=== PATIENT | female | born 1970 | race Caucasian/White ===

== ENCOUNTER 2016-02-18 11:04 | Emergency (ER) | payer BC, MEDICAID ==
[2016-02-18 11:16] VITALS: TEMP 98.1; BMI 26.6
[2016-02-18 11:41] LABS: LEUKOCYTES/URINE NEG (NEGATIVE); NITRITE/URINE NEG (NEGATIVE); URINE OCCULT BLOOD NEG (NEG/TRACE); WBC/URINE 0-2 (0-5)
--- NOTE | 2016-02-18 12:02 | EDPRACDOC ---
- General Information Chief Complaint: Female Urogenital Problems Stated Complaint: URINARY PROBLEM Time Seen by Provider: 02/18/16 11:24 Information Source: Patient Mode Of Arrival: Car Home Medications: Home Medications Cetirizine HCl [Zyrtec] 10 mg PO DAILY 06/05/14 Atenolol-Chlorthalidone [Tenoretic 50 Tablet (50mg/25mg)] 1 tab PO DAILY Cyclobenzaprine HCl [Flexeril] 5 - 10 mg PO TID 06/24/15 Omeprazole [Prilosec] 40 mg PO BID 06/24/15 Oxycodone HCl [Roxicodone] 5 mg PO TID 06/24/15 Potassium Chloride [Klor-Con 10] 10 meq PO BID 06/24/15 Pravastatin [Pravachol] 20 mg PO HS 06/24/15 Fluconazole [Diflucan] 0 mg PO DIR 10/30/15 Promethazine [Phenergan] 25 mg PO Q6-8H PRN #20 tab 10/30/15 Sulfamethoxazole/Trimethoprim [Bactrim Ds Tablet] 1 tab PO BID #14 tab 10/30/15 Dicyclomine HCl [Bentyl] 20 mg PO Q6H #20 tab 02/18/16 Ondansetron [Zofran Odt] 4 mg PO Q6H #20 tab.rapdis 02/18/16 Prednisone [Deltasone] 20 mg PO BID #10 tablet 02/18/16 Tramadol HCl 50 mg PO Q4-6H #15 tablet 02/18/16 Allergies/Adverse Reactions: Allergies Allergy/AdvReac Type Severity Reaction Status Date / Time celecoxib [From Celebrex] Allergy Rash-Genera Verified 11/17/15 04:58 lized diazepam [From Valium] Allergy UNKNOWN Verified 11/17/15 04:58 diphenhydramine HCl Allergy UNKNOWN Verified 11/17/15 04:58 [From Benadryl] ketorolac tromethamine Allergy UNKNOWN Verified 11/17/15 04:58 [From Toradol] alprazolam [From Xanax] AdvReac See Verified 11/17/15 04:58 Comments duloxetine HCl AdvReac See Verified 11/17/15 04:58 [From Cymbalta] Comments zolpidem tartrate AdvReac See Verified 11/17/15 04:58 [From Betty] Comments - History of Present Illness HPI: PT STATES HAD UTI APPROX 1 WK AGO WAS HAVING URINARY SYMPTOMS WITH PELVIC PRESSURE AND RIGHT FLANK AND BACK PAIN TOOK MACROBID BUT HASNT GOTTEN ANY BETTER. STATES THE PAIN IS GETTING MILDLY WORSE. NO N/V/D FEVERS CHILLS AT THIS TIME. Onset: 1 week Urinary Pain Location: Reports: Suprapubic, Right Flank Symptom Onset: Reports: Spontaneous Pain Severity: Moderate Pain Quality: Reports: Aching History of: Reports: UTI : No Oral Intake: Normal Urinary Output: Normal Associated Signs and Symptoms: Reports: Abdominal Pain, Back Pain, Flank Pain ED Past Medical History - History Reviewed Yes Nurses notes reviewed and agree except as marked Travel Outside of [place] in the Last 3 Months?: No - Patient Medical History Cardiac History: Reports: Coronary Artery Disease, Atrial Fibrillation, Hypertension, Hypercholesterolemia, Syncope Respiratory History: Reports: COPD (stage 3) GI/ History: Reports: Urinary Tract Infection, Kidney Stones, Gastroesophageal Reflux Musculoskeletal History: Reports: Gout, Rheumatoid Arthritis Psychological History: Denies: Depression Systemic History: Denies: Cancer Additional Past Medical History: Bursitis. Migraines Surgical History: Reports: Cholecystectomy, Hysterectomy - Family Medical History Reports: Hypertension, Diabetes, Cancer, Cardiac Disorders. Denies: Stroke - Social Medical History Smoking Status: Heavy tobacco smoker (5 or more cigarettes/day or daily pipe/ cigar) ETOH: None Substance Abuse: None Lives With: Other Lives In: Home EDM Review of Systems - Review of Systems ROS Negative Except as Marked: Yes All systems reviewed and were negative except as marked Constitutional: No Symptoms Reported. negative: Fever, Chills, Weakness, Fatigue, Loss of Appetite Eyes: No Symptoms Reported. negative: Redness, Blurred Vision, Double Vision, Discharge, Pain, Light Sensitive, Photophobia Ears: No Symptoms Reported. negative: Pain, Hearing Loss, Drainage, Ear Pulling Throat: No Symptoms Reported. negative: Pain, Swelling Nose: No Symptoms Reported. negative: Congestion, Bleeding, Discharge, Injection, Swelling, Deformity, Ecchymosis, Tender, Abrasion, Laceration Mouth: No Symptoms Reported. negative: Pain, Drooling Respiratory: No Symptoms Reported. negative: Cough, Brassy Cough, Barky Cough, Shortness of Breath, Wheezing, Hemoptysis Cardiovascular: No Symptoms Reported. negative: Chest Pain, Palpitations, Syncope, Edema, Orthopnea, PND, Skin Mottling, Cyanosis Gastrointestinal: Pain (PELVIC PRESSURE, RLQ AND RIGHT BACK PAIN HURTS WHEN SHE TRIES TO STAND UP STRAIGHT.). negative: Constipation, Diarrhea, Formula Intolerance, Melena, Nausea, Vomiting Genitourinary: Flank Pain (RT), Other (DECREASED URINATION). negative: Bleeding , Dysuria, Discharge, Frequency, Hematuria, , Testicular Pain Neurological: No Symptoms Reported. negative: Headache, Dizziness, Seizure, Numbness, Weakness, Speech Difficulty, Gait Difficulty Musculoskeletal: No Symptoms Reported. negative: Neck, Chestwall, Ribs, Back, Shoulder, Arm, Elbow, Forearm, Wrist, Hand, Pelvis, Hip, Femur, Knee, Leg, Ankle , Foot Integumentary: No Symptoms Reported. negative: Itching, Rash, Bruising, Wound Allergic/Immunologic: No Symptoms Reported. negative: Hives, Itching Hematologic: No Symptoms Reported. negative: Lymphadenopathy, Easy Bruising, Easy Bleeding Endocrine: No Symptoms Reported. negative: Weight Gain, Weight Loss Psychiatric: No Symptoms Reported. negative: Anxiety, Depression, Hallucinations, Insomnia, Suicidal - Physical Exam Constitutional: No apparent distress, Alert (Awake) Oriented to: Time, Person, Place Last recorded Vital Signs: Last Vital Signs Temp 98.1 F 02/18/16 11:15 Pulse 72 02/18/16 11:15 Resp 20 02/18/16 11:15 BP 129/74 02/18/16 11:15 Pulse Ox 97 02/18/16 11:15 Oxygen Pulse Oxygen Saturation 97 O2 Device Oxygen Flow Rate Fraction of Inspired Oxygen ( FIO2) - HEENT Head: Normal ( normocephalic) Eye Exam: Normal (PERRL, EOMI, Sclera white) Oropharynx: Normal (Pharynx:Moist without exudate,Gums-no swelling) Tympanic Membrane: Normal ENT EAC: Normal TMJ: Normal Nose: No Symptoms Reported (septum midline) Neck: Normal (FROM, trachea at midline) - Respiratory/Cardiovascular Respiratory: Normal - CTA (BBS clear to auscultation without adventitious sounds ) Cardiovascular: Normal (RRR without murmur, gallop or rub) - GI Auscultation: Normal (NABS) Palpation: Normal (Soft,No rebound or guarding, non distended) Tenderness: Mild, RLQ, Suprapubic Chua's Sign: Negative - Bladder: Tender - Musculoskeletal Back: Normal (Non-Tender) Extremities: Normal (Normal tone, Pulses 2+ No cyanosis or edema, FROM) - Integumentary Skin: Normal, Warm, Dry Lymphatics: Normal (no adenopathy) - Neurologic Memory Impaired: Normal Motor Function: Normal (Normal tone, Pulses 2+ No cyanosis or edema, FROM) Cranial Nerve: Normal (CN II-X11 intact sensation, strength 5/5) Cerebellar: Normal Mood Description: Normal Perception: Normal - Differential Diagnosis Appendicitis, Constipation, Pyelonephritis, Urolithiasis, UTI - Results 02/18/16 12:24 02/18/16 12:24 Urine Color Yellow 02/18/16 11:10 Urine Clarity Clear 02/18/16 11:10 Urine pH 6.0 (5.0-8.0) 02/18/16 11:10 Ur Specific [place] 1.005 (1.003-1.035) 02/18/16 11:10 Urine Protein Neg (NEG/TRACE) 02/18/16 11:10 Urine Glucose (UA) Neg (NEGATIVE) 02/18/16 11:10 Urine Ketones Neg (NEGATIVE) 02/18/16 11:10 Urine Occult Blood Neg (NEG/TRACE) 02/18/16 11:10 Urine Nitrite Neg (NEGATIVE) 02/18/16 11:10 Urine Bilirubin Neg (NEGATIVE) 02/18/16 11:10 Urine Urobilinogen <2.0 MG/DL (0-1) 02/18/16 11:10 Ur Leukocyte Esterase Neg (NEGATIVE) 02/18/16 11:10 Urine WBC 0-2 (0-5) 02/18/16 11:10 Ur Epithelial Cells 2+ 02/18/16 11:10 Urine Bacteria 3+ (NEG/FEW) H 02/18/16 11:10 Urine Mucus Occ (NEG/OCC) 02/18/16 11:10 Lab Results 02/18/16 11:10 Urine Color Yellow Urine Clarity Clear Urine pH 6.0 Ur Specific [place] 1.005 Urine Protein Neg Urine Glucose (UA) Neg Urine Ketones Neg Urine Occult Blood Neg Urine Nitrite Neg Urine Bilirubin Neg Urine Urobilinogen <2.0 Ur Leukocyte Esterase Neg Urine WBC 0-2 Ur Epithelial Cells 2+ Urine Bacteria 3+ H Urine Mucus Occ - Diagnostic Imaging CT ABD/PEL Image interpreted by: Radiologist COMPARISON: CT abdomen pelvis 10/30/2015 FINDINGS: Lower chest: Normal heart size. Dependent ground-glass opacities within the lower lobes bilaterally. Hepatobiliary: Liver is normal in size and contour. No focal hepatic lesion is identified. Patient status post cholecystectomy. Near the surgical clips there is a small low-attenuation collection measuring 13 mm which is nonspecific however may represent mild intrahepatic biliary ductal dilatation. Common bile duct is unremarkable. Pancreas: Unremarkable Spleen: Unremarkable Adrenals/Urinary Tract: Normal adrenal glands. Kidneys enhance symmetrically with contrast. Unchanged simple cyst inferior pole right kidney. Urinary bladder is unremarkable. No ureterolithiasis. Stomach/Bowel: Postsurgical changes of the base of the cecum. No abnormal bowel wall thickening or evidence for bowel obstruction. No free fluid or free intraperitoneal air. Vascular/Lymphatic: Normal caliber abdominal aorta. No retroperitoneal lymphadenopathy. Other: Status post hysterectomy. Musculoskeletal: No aggressive or acute appearing osseous lesions. IMPRESSION: No acute process within the abdomen or pelvis. Fluid structure adjacent to the clips within the gallbladder fossa are nonspecific however may represent a dilated cystic duct or potentially postoperative changes. No surrounding inflammatory change. Decision Time to Discharge: 14:24 - Departure Disposition: Home Condition: Stable Final Diagnosis: Abdominal pain Qualifiers: Abdominal location: lower abdomen, unspecified Qualified Code(s): R10.30 - Lower abdominal pain, unspecified Instructions: Non-pharmacological Pain Management Therapies for Adults (GEN), Abdominal Pain (ED) Education/Counseling Given To: Patient Education/Counseling Given Regarding: Diagnosis, Treatment, Prognosis, Follow Up Referrals: None,No Provider [Primary Care Provider] - One Week Maury Boyd MD [Staff Physician] - One Week Prescriptions: Dicyclomine HCl [Bentyl] 20 mg PO Q6H #20 tab Ondansetron [Zofran Odt] 4 mg PO Q6H #20 tab.rapdis Prednisone [Deltasone] 20 mg PO BID #10 tablet Tramadol HCl 50 mg PO Q4-6H #15 tablet Additional Instructions: INCREASE PO FLUIDS. RETURN FOR WORSE OR DIFFERENT SYMPTOMS.
[2016-02-18] MEDS ORDERED: OXYCODONE HCL 5 MG TABLET PO ONE ×2 (12:05→14:23)
[2016-02-18] MEDS ORDERED: ONDANSETRON HCL 4 MG ODT TAB PO ONE (12:05)
[2016-02-18] MEDS ORDERED: SODIUM CHLORIDE 0.9% 3 ML FLUSH FLUSH PRN (12:08)
[2016-02-18] MEDS ORDERED: ONDANSETRON HCL 4 MG/2 ML VIAL IV ONE (12:09)
[2016-02-18] MEDS ORDERED: MORPHINE 4 MG/ML INJECTION IV ONE (12:09)
[2016-02-18] MEDS ORDERED: NS 1,000 ML IV ONE (12:09)
[2016-02-18 12:32] LABS: AUTOMATED BASOPHIL 0.9 % (0-2); AUTOMATED EOSINOPHIL 2.3 % (0-5); AUTOMATED LYMPH 36.4 % (17-44); AUTOMATED MONOCYTE 5.2 % (3-10); AUTOMATED NEUTROPHIL 55.2 % (45-76)
[2016-02-18 12:54] LABS: BLOOD UREA NITROGEN 6 MG/DL (7-17); CALCIUM 9.5 MG/DL (8.4-10.2); CALCULATED OSMOLALITY 271 MOs/Kg (270-290); CHLORIDE 106 mEq/L (98-107); GLUCOSE 101 MG/DL (70-99); SODIUM LEVEL 142 mEq/L (137-146)
[2016-02-18] MEDS ORDERED: Pharmacy Review for Metformin - IV Contrast Given SCH (13:00)
[2016-02-18 14:09] VITALS: BP 105/60; PULSE 60
--- NOTE | 2016-02-18 14:13 | DIRPT ---
CLINICAL DATA: Patient with suprapubic and right lower quadrant pain. EXAM: CT ABDOMEN AND PELVIS WITH CONTRAST TECHNIQUE: Multidetector CT imaging of the abdomen and pelvis was performed using the standard protocol following bolus administration of intravenous contrast. CONTRAST: 100 cc Isovue 370 COMPARISON: CT abdomen pelvis 10/30/2015 FINDINGS: Lower chest: Normal heart size. Dependent ground-glass opacities within the lower lobes bilaterally. Hepatobiliary: Liver is normal in size and contour. No focal hepatic lesion is identified. Patient status post cholecystectomy. Near the surgical clips there is a small low-attenuation collection measuring 13 mm which is nonspecific however may represent mild intrahepatic biliary ductal dilatation. Common bile duct is unremarkable. Pancreas: Unremarkable Spleen: Unremarkable Adrenals/Urinary Tract: Normal adrenal glands. Kidneys enhance symmetrically with contrast. Unchanged simple cyst inferior pole right kidney. Urinary bladder is unremarkable. No ureterolithiasis. Stomach/Bowel: Postsurgical changes of the base of the cecum. No abnormal bowel wall thickening or evidence for bowel obstruction. No free fluid or free intraperitoneal air. Vascular/Lymphatic: Normal caliber abdominal aorta. No retroperitoneal lymphadenopathy. Other: Status post hysterectomy. Musculoskeletal: No aggressive or acute appearing osseous lesions. IMPRESSION: No acute process within the abdomen or pelvis. Fluid structure adjacent to the clips within the gallbladder fossa are nonspecific however may represent a dilated cystic duct or potentially postoperative changes. No surrounding inflammatory change. Electronically Signed By: Balbir Townsend M.D. On: 02/18/2016 14:11
[2016-02-18] MEDS ORDERED: SODIUM CHLORIDE 0.9% 3 ML FLUSH FLUSH SCH (18:00)
== END 2016-02-18 14:43 | disposition home or self-care (01) ==
LOC: EDMC 11:04
DX: R10.30 Lower abdominal pain, unspecified (principal); J44.9 Chronic obstructive pulmonary disease, unspecified; K21.9 Gastro-esophageal reflux disease without esophagitis; I25.10 Atherosclerotic heart disease of native coronary artery without angina pectoris; I48.91 Unspecified atrial fibrillation; I10 Essential (primary) hypertension; E78.00 Pure hypercholesterolemia, unspecified; F17.200 Nicotine dependence, unspecified, uncomplicated; Z79.899 Other long term (current) drug therapy
CPT/HCPCS: 36415; 74177; 80053; 81001; 85025; 87086; 96361; 96374; 96375; 99283; J2270; J2405; J3490

== ENCOUNTER 2016-02-20 12:52 | Emergency (ER) | payer BC, MEDICAID ==
[2016-02-20 12:53] VITALS: BMI 26.6
[2016-02-20 13:07] VITALS: BP 131/72; PULSE 68; TEMP 98.3
--- NOTE | 2016-02-20 13:22 | EDPRACDOC ---
- General Information Chief Complaint: Back Pain Stated Complaint: BACK PAIN Time Seen by Provider: 02/20/16 13:12 Home Medications: Home Medications Cetirizine HCl [Zyrtec] 10 mg PO DAILY 06/05/14 Atenolol-Chlorthalidone [Tenoretic 50 Tablet (50mg/25mg)] 1 tab PO DAILY Cyclobenzaprine HCl [Flexeril] 5 - 10 mg PO TID 06/24/15 Omeprazole [Prilosec] 40 mg PO BID 06/24/15 Oxycodone HCl [Roxicodone] 5 mg PO TID 06/24/15 Potassium Chloride [Klor-Con 10] 10 meq PO BID 06/24/15 Pravastatin [Pravachol] 20 mg PO HS 06/24/15 Fluconazole [Diflucan] 0 mg PO DIR 10/30/15 Promethazine [Phenergan] 25 mg PO Q6-8H PRN #20 tab 10/30/15 Sulfamethoxazole/Trimethoprim [Bactrim Ds Tablet] 1 tab PO BID #14 tab 10/30/15 Dicyclomine HCl [Bentyl] 20 mg PO Q6H #20 tab 02/18/16 Ondansetron [Zofran Odt] 4 mg PO Q6H #20 tab.rapdis 02/18/16 Prednisone [Deltasone] 20 mg PO BID #10 tablet 02/18/16 Tramadol HCl 50 mg PO Q4-6H #15 tablet 02/18/16 Ibuprofen Tablet [Motrin] 800 mg PO TID PRN #30 tab 02/20/16 Allergies/Adverse Reactions: Allergies Allergy/AdvReac Type Severity Reaction Status Date / Time celecoxib [From Celebrex] Allergy Rash-Genera Verified 11/17/15 04:58 lized diazepam [From Valium] Allergy UNKNOWN Verified 11/17/15 04:58 diphenhydramine HCl Allergy UNKNOWN Verified 11/17/15 04:58 [From Benadryl] ketorolac tromethamine Allergy UNKNOWN Verified 11/17/15 04:58 [From Toradol] alprazolam [From Xanax] AdvReac See Verified 11/17/15 04:58 Comments duloxetine HCl AdvReac See Verified 11/17/15 04:58 [From Cymbalta] Comments zolpidem tartrate AdvReac See Verified 11/17/15 04:58 [From Betty] Comments - History of Present Illness Onset: CHRONIC HPI: PT STATES CONTINUED LOWER BACK PAIN SINCE SATURDAY, SEEN IN ED AT THAT TIME, STATES NO BETTER, PT DENIES ANY KNOWN INJURY, STATES USUALLY TAKES "ROSA 5" FOR HER BACK PAIN, STATES PCP HAS "MOVED OUT OF TOWN AND I DON'T KNOW WHO MY NEW DOCTOR WILL BE." PT STATES PAIN IS SHARP AND STABBING, WORSE WITH MOVEMENT, NO BOWEL OR BLADDER DYSFUNCTION. Pain Location: Reports: Bilateral, Lower, Lumbar Pain Radiates To: Reports: None Pain Caused By: Reports: Spontaneous Relevant History: Reports: Chronic back pain Currently ?: No Pain Severity: Reports: Severe Pain Quality: Reports: Sharp, Stabbing Worsened By: Reports: Movement, Twisting, Walking Associated Signs and Symptoms: Denies: Abdominal Pain, Dysuria, Hematuria, Nausea, Vomiting ED Past Medical History - History Reviewed Yes Nurses notes reviewed and agree except as marked - Patient Medical History Cardiac History: Reports: Coronary Artery Disease, Atrial Fibrillation, Hypertension, Hypercholesterolemia, Syncope Respiratory History: Reports: COPD (stage 3) GI/ History: Reports: Urinary Tract Infection, Kidney Stones, Gastroesophageal Reflux Musculoskeletal History: Reports: Gout, Rheumatoid Arthritis Psychological History: Denies: Depression Systemic History: Denies: Cancer Additional Past Medical History: Bursitis. Migraines Surgical History: Reports: Cholecystectomy, Hysterectomy - Family Medical History Reports: Hypertension, Diabetes, Cancer, Cardiac Disorders. Denies: Stroke - Social Medical History Smoking Status: Heavy tobacco smoker (5 or more cigarettes/day or daily pipe/ cigar) ETOH: None Substance Abuse: None EDM Review of Systems - Review of Systems Constitutional: negative: Chills, Fever Gastrointestinal: negative: Diarrhea, Nausea, Pain, Vomiting Genitourinary: negative: Dysuria, Frequency Neurological: negative: Dizziness, Headache, Numbness, Weakness Musculoskeletal: Back Integumentary: No Symptoms Reported - Physical Exam Constitutional: Alert (Awake), No apparent distress Oriented to: Time, Person, Place Last recorded Vital Signs: Last Vital Signs Temp 98.3 F 02/20/16 13:06 Pulse 68 02/20/16 13:06 Resp 18 02/20/16 13:06 BP 131/72 02/20/16 13:06 Pulse Ox 96 02/20/16 13:06 Oxygen Pulse Oxygen Saturation 96 O2 Device Room Air Oxygen Flow Rate Fraction of Inspired Oxygen ( FIO2) - HEENT Head: Normal ( normocephalic) - Musculoskeletal Back: Lumbar TTP. negative: Thoracic Step-off, Lumbar Step-off, Thoracic TTP - Integumentary Skin: Normal, Warm, Dry Lymphatics: Normal (no adenopathy) - Neurologic Memory Impaired: Normal Motor Function: Normal (Normal tone, Pulses 2+ No cyanosis or edema, FROM) Cranial Nerve: Normal (CN II-X11 intact sensation, strength 5/5) Cerebellar: Normal Mood Description: Normal Perception: Normal ED Back Exam - Neurologic Motor Deficit: None - Musculoskeletal Cervical: Normal Thoracic: Normal Lumbar: Tender Midline: Tender Paraspinous: Tender Straight Leg Raise: Negative Pelvis: Normal - Differential Diagnosis DJD, HNP, Musculoskeletal pain, Strain - Additional Information PREVIOUS CHART REVIEWED, PT SEEN ON 02/18/16 AT THAT TIME WAS COMPLAINING OF ABD PAIN AND BACK PAIN, PT HAD LABS, UA AND CT SCAN, ALL NON-ACUTE REVIEW OF CONTROLLED SUBSTANCE RX HX SHOWS PT RECEIVED #[address] BREAUX ON 02/10/16. Decision Time to Discharge: 13:24 - Departure Disposition: Home Condition: Stable Final Diagnosis: Acute low back pain Instructions: Acute Low Back Pain (ED) Education/Counseling Given To: Patient Education/Counseling Given Regarding: Diagnosis, Treatment, Prognosis, Follow Up Referrals: Sarika Templeton MD [Staff Physician] - One Week Prescriptions: Ibuprofen Tablet [Motrin] 800 mg PO TID PRN #30 tab PRN Reason: Pain Additional Instructions: CONTINUE YOUR PREVIOUS MEDICATIONS BEFORE, APPLY WARM [id number] TO YOUR BACK 20 MINS AT A TIME 4 - 5 TIMES DAILY NEEDED FOR PAIN. YOU MUST FOLLOW UP WITH YOUR PRIMARY CARE DOCTOR FOR PAIN MANAGEMENT.
== END 2016-02-20 13:33 | disposition home or self-care (01) ==
LOC: ED 12:52
DX: M54.5 Low back pain (principal); F17.200 Nicotine dependence, unspecified, uncomplicated
CPT/HCPCS: 99282